=== PATIENT | male | born 1975 | race African-American/Black ===

== ENCOUNTER 2022-06-13 23:57 | Emergency (ER) | payer BC, MEDICAID ==
[~2022-06-13] VITALS: Ht 170.2 cm; Wt 86.4 kg
[2022-06-14 02:28] VITALS: BP 141/76
[2022-06-14] MEDS ORDERED: TraMADol HCL 50 MG TABLET PO ONE (02:45)
[2022-06-14] MEDS ORDERED: CEPHALEXIN MONOHYDRATE 500 MG CAPSULE PO ONE (02:45)
[2022-06-14] MEDS ORDERED: SULFAMETHOX/TRIMETH DS 800-160 MG/TABLET PO ONE (02:45)
[2022-06-14] MEDS ORDERED: SULF-261 PO (03:17)
[2022-06-14] MEDS ORDERED: IBUP-2070 PO (03:17)
[2022-06-14] MEDS ORDERED: CEPH-558 PO (03:17)
== END 2022-06-14 04:24 | disposition home or self-care (01) ==
LOC: EMS 23:59
DX: L02.414 Cutaneous abscess of left upper limb (principal); F60.9 Personality disorder, unspecified; F12.90 Cannabis use, unspecified, uncomplicated; F17.210 Nicotine dependence, cigarettes, uncomplicated
CPT/HCPCS: 99284; Z7502; Z7610

== ENCOUNTER 2025-06-30 16:54 | Inpatient (IN) | payer BC, MEDICAID, OTHER ==
[~2025-06-30] VITALS: Ht 170.2 cm; Wt 104.5 kg
[~2025-06-30 16:54] MED LIST: CEPH-558 PO; IBUP-1492 PO; SULF-261 PO
[2025-06-30 17:36] LABS: CALCIUM, TOTAL 8.9 mg/dL (8.8-10.5); CREATININE 1.14 mg/dL (0.60-1.30); GLOMERULAR FILTR. RATE CALC > 60 mL/min (>60); GLUCOSE,RANDOM 92 mg/dL (70-110); SODIUM SERUM 139 mmol/L (136-145); UREA NITROGEN, BLOOD 17 mg/dL (7-18)
[2025-06-30 17:39] LABS: PLATELET COUNT (AUTO) 265 K/uL (150-450); RED BLOOD CELL COUNT(AUTO) 5.55 MIL/uL (4.50-5.90); RED CELL DISTRIBUTION WIDTH 14.4 % (11.5-14.5); WHITE BLOOD COUNT (AUTO) 5.6 K/uL (4.5-11.0)
[2025-06-30 17:48] LABS: TROPONIN I-HIGH SENSITIVITY 4 ng/L (<76)
[2025-06-30 17:50] LABS: ASPARTATE AMINOTRANSFERASE 19 U/L (15-37); CREATINE KINASE, TOTAL ONLY 171 U/L (39-308); TOTAL PROTEIN, SERUM 8.0 g/dL (6.4-8.2)
[2025-06-30] MEDS: ACETAMINOPHEN 500 MG TABLET PO ONE (17:53)
[2025-06-30] MEDS: FAMOTIDINE 20 MG/2 ML VIAL IVP ONE (17:53)
[2025-06-30] MEDS ORDERED: ONDANSETRON HCL 4 MG/2 ML VIAL IVP PRN (19:00)
[2025-06-30] MEDS ORDERED: ACETAMINOPHEN 325 MG TABLET PO PRN (19:00)
[2025-06-30] MEDS: ASPIRIN 81 MG CHEWABLE TABLET PO ONE (19:29)
[2025-06-30 20:23] LABS: TROPONIN I-HIGH SENSITIVITY 4 ng/L (<76)
[2025-06-30] MEDS: DOCUSATE SODIUM 100 MG CAPSULE PO SCH (21:00)
[2025-06-30] MEDS: HEPARIN SODIUM,PORCINE 5,000 UNITS/ML VIAL SQ SCH (23:27)
[2025-07-01 00:57] LABS: TROPONIN I-HIGH SENSITIVITY 4 ng/L (<76)
[2025-07-01 05:36] LABS: PLATELET COUNT (AUTO) 239 K/uL (150-450); RED BLOOD CELL COUNT(AUTO) 5.38 MIL/uL (4.50-5.90); RED CELL DISTRIBUTION WIDTH 14.0 % (11.5-14.5); WHITE BLOOD COUNT (AUTO) 5.1 K/uL (4.5-11.0)
[2025-07-01 05:51] LABS: CALCIUM, TOTAL 8.5 mg/dL (8.8-10.5); CREATININE 1.12 mg/dL (0.60-1.30); GLOMERULAR FILTR. RATE CALC > 60 mL/min (>60); GLUCOSE,RANDOM 97 mg/dL (70-110); SODIUM SERUM 140 mmol/L (136-145); UREA NITROGEN, BLOOD 18 mg/dL (7-18)
[2025-07-01] MEDS: ASPIRIN 81 MG CHEWABLE TABLET PO SCH (07:18)
[2025-07-01 11:22] LABS: COVID AG,FIA SOURCE NASAL SWAB
[2025-07-01 11:41] VITALS: BP 112/76; PULSE 77; RESP 20; TEMP 98.1; O2SAT 95
[2025-07-01 12:00] VITALS: BP 112/76; PULSE 77; RESP 20; TEMP 98.1; O2SAT 95
[2025-07-01 12:15] LABS: SARS-COV2 (COVID) ANTIGEN,FIA Negative (Negative)
== END 2025-07-01 14:50 | DRG 313 ==
LOC: EMS 17:02 → EDH 18:50 → 5N 07-01 09:00
PROVIDERS: ADMIT Internal Medicine; ATTEND Internal Medicine
DX: R07.89 Other chest pain (principal); E66.9 Obesity, unspecified; R60.9 Edema, unspecified; F17.210 Nicotine dependence, cigarettes, uncomplicated; Z71.6 Tobacco abuse counseling; Z68.36 Body mass index [BMI] 36.0-36.9, adult; Z20.822 Contact with and (suspected) exposure to COVID-19
CPT/HCPCS: 71045; 80048; 80076; 82550; 83735; 83880; 84484; 85025; 85379; 85610; 85730; 93005; 93306; 96374; 99285; G0378; J1644; J3490; 36415-L1; 36415-TC